=== PATIENT | female | born 1925 | race Caucasian/White ===

== ENCOUNTER 2016-10-03 11:18 | Observation (INO) ==
--- NOTE | 2016-10-03 11:56 | EKG Report ---
Stationary ECG Study [facility] ER Test Date: 10/03/2016 11:56:18 AM Pat Name: GARCÍA KEY Department: Room: Gender: F Tabber: : 1925 Requested by: Vick Dallas Order Number: [id number] Reading MD: CLAUDIO LEYVA Intervals [place] Rate: 59 P: 61 RI: 196 QRS: 104 QRSD: 87 T: 16 QT: 408 QTc: 408 Interpretive Statements SINUS RHYTHM MARKED RIGHT AXIS DEVIATION MODERATE ST DEPRESSION Electronically Signed On 10-03-16 17:12:01 CDT by CLAUDIO LEYVA [email or web address]
[2016-10-03 12:08] LABS: Basophils % 0.5 % (0.0-0.8); Eosinophils # 0.1 10*3/uL (0.0-0.87); Eosinophils % 1.5 % (0.00-10.9); Hemoglobin 12.1 GM/DL (12.0-16.0); Immature Granulocytes % 0.3 %; Immature Granulocytes Absolute 0.02 #; Lymphocytes # 2.1 10*3/uL (1.4-4.0); Lymphocytes % 34.2 % (21.3-54.2); Mean Corpuscular HGB Conc 33.6 GM/DL (32-36); Mean Corpuscular Hemoglobin 31 PG (27-34); Mean Corpuscular Volume 91.8 FL (87-102); Mean Platelet Volume 10.7 FL (9.6-12.0); Monocytes # 0.6 10*3/uL (0.11-0.8); Monocytes % 10.5 % (1.7-12.7); Neutrophils # 3.2 10*3/uL (1.4-7.4); Platelet Count 150 T/CUMM (130-400); Red Blood Count 3.92 MC/CUMM (3.8-5.5); Red Cell Distribution Width 13.2 % (9.3-17.3)
--- NOTE | 2016-10-03 12:28 | XRay Report ---
XR chest 1V portable Indication: Chest pain. Chest one view: Comparison 01/07/2012. Surgical clips throughout the low neck again shown. 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 There is persistent coarsening of the interstitium of the central lungs as well as lung bases. However, somewhat asymmetric increased density involving the medial right lung base is now present. Impression: Early right basilar pneumonia superimposed on chronic senile lung changes. PROCEDURE INTERPRETED AT [facility] DEPARTMENT OF RADIOLOGY Final Report Signed by: Ivan Pedraza M.D.
[2016-10-03 13:21] LABS: Albumin 3.3 G/DL (3.4-5.0); Bilirubin,Total 1.2 MG/DL (0.2-1.0); Calcium 8.5 MG/DL (8.5-10.1); Magnesium 2.5 MG/DL (1.8-2.4); Osmolality,Calculated 289.7 MOS/KG (273-304); Potassium 3.9 MMOL/L (3.5-5.1); Total Protein 6.3 G/DL (6.4-8.3)
[2016-10-03] MEDS ORDERED: LEVOFLOXACIN INJ 500 MG in PREMIX 1 EACH IV STA (14:25)
--- NOTE | 2016-10-03 14:31 | Emergency Department Note ---
IJennifer Emily, am scribing for, and in the presence of, Vick Leonard MD 11:55. Horacio Julian Phillip K, MD, personally performed the services described in this documentation, ascribed by Svetlana Rodriguez in my presence, and it is both accurate and complete [id number] . Arrival - Arrival Chief Complaint: Chest Pain ED Nursing Triage Note: PT WAS SEEN AT [facility] THIS AM FOR CHEST PAIN , PT WITH HX OF DEMENTIA, PT DENIES ANY COMPLAINTS AT PRESENT BUT ALSO DOES NOT REMEMBER EVEN GOING TO THE CLINIC THIS AM, PER SITTER PT IS AT HER NORMAL MENTAL STATUS Mode of Arrival: Stretcher Limitations: No Limitations Source: Patient, Family (family memeber and sitter) Time Seen by Provider: 10/03/16 11:38 - History of Present Illness HPI Narrative: Pt is a 89 y/o female who was transferred from [place] to ED for further evaluation of left sided chest pain. Pt notes having chest pain on left side this morning after coming back from bathroom, per sitter. Sitter states on Saturday pt c/o left shoulder pain and pt notes she is still having the pain. Pt denies N/V, cold, cough, SOB, or injury to left side. PMHx of Dementia, HTN, CVA, and thyroid issues. FMHx of sister having heart issues. Pt has not had a stress test previously. Pt has had shingles on her left side of trunk, twice before, per family member. Pt's PCP is at [facility]. Pt is allergic to aspirin. Onset (ago): hour(s) Consistency: constant Severity: mild, moderate Severity scale (1-10): 4 Quality: aching Allergies/Adverse Reactions: Allergies Allergy/AdvReac Type Severity Reaction Status Date / Time aspirin Allergy RASH Verified 10/03/16 11:34 chloramphenicol Allergy RASH Verified 10/03/16 13:02 iodine Allergy RASH Verified 10/03/16 13:02 Penicillins Allergy RASH Verified 10/03/16 12:47 Home Medications: Home Medications Medication Instructions Recorded Confirmed Type Amlodipine Besylate [Amlodipine 2.5 mg PO DAILY 10/03/16 10/03/16 History Besylate] Atorvastatin [Lipitor] 20 mg PO BEDTIME 10/03/16 10/03/16 History Clopidogrel Bisulfate [Clopidogrel] 75 mg PO DAILY 10/03/16 10/03/16 History Levothyroxine Tab [Synthroid Tab] 75 mcg PO DAILY@0700 10/03/16 10/03/16 History Memantine [Namenda] 10 mg PO BID 10/03/16 10/03/16 History Rivastigmine Cap [Exelon Cap] 1.5 mg PO TID 10/03/16 10/03/16 History Review of System - Review of System 12 point system: reviewed and no additional remarkable complaints except as stated - Review of System Constitutional: Absent: fever, weakness Respiratory: Absent: respiratory distress Cardiovascular: Present: chest pain (left side). Absent: syncope Gastrointestinal: Absent: abdominal pain, nausea, vomiting Musculoskeletal: Present: upper back pain (left shoulder). Absent: arm pain, back pain, leg pain, neck pain Skin: Absent: rash Neurological: Absent: headache Medical,Surgical,& Family Hx - Medical History Cardio: History of: Hypertension Neurology: History of: Cerebrovascular Accident Endocrine: History of: Thyroid Disorder - Social History Smoking Status: Never smoker Exam Vital Signs: Vital Signs Temperature 98.3 F 10/03/16 11:25 Pulse Rate 64 10/03/16 11:25 Respiratory Rate 16 10/03/16 11:25 O2 Sat by Pulse Oximetry 99 10/03/16 11:25 - General General appearance: alert, in no apparent distress - Head Head exam: Present: atraumatic, normocephalic - Eye Eye exam: Present: PERRL, EOMI - ENT ENT exam: Present: mucous membranes moist. Absent: mucous membranes dry - Neck Neck exam: Present: full ROM, trachea midline. Absent: tenderness - Chest Chest inspection: Present: symmetric chest wall rise. Absent: tenderness, rash - Respiratory Respiratory exam: Present: normal lung sounds bilaterally. Absent: respiratory distress - Cardiovascular Cardiovascular exam: Present: regular rate, normal rhythm, normal heart sounds - Abdominal Exam Abdominal exam: Present: soft, normal bowel sounds. Absent: distention, tenderness, guarding, rebound - Extremities Exam Extremities exam: Present: full ROM. Absent: tenderness, pedal edema - Back Exam Back exam: Present: full ROM. Absent: tenderness - Neurological Exam Neurological exam: Present: alert, oriented X3, CN II-XII intact. Absent: motor sensory deficit - Psychiatric Psychiatric exam: Present: normal affect, normal mood - Skin Skin exam: Present: warm, dry, intact, normal color. Absent: rash, diaphoresis , erythema Course Course Narrative: Patient discussed with the hospitalist. Results - Labs CBC & BMP: 10/03/16 12:01 10/03/16 12:01 Lab Results: I have reviewed the patients labs (Troponin is negative) Labs: Laboratory Tests 10/03/16 12:01 Sodium 145 Potassium 3.9 Chloride 111 H Carbon Dioxide 28 Glucose 121 H Magnesium 2.5 H Total Bilirubin 1.20 H Total Protein 6.3 L Albumin 3.3 L - EKG EKG results: interpreted by NIURKA, sinus rhythm (59) - Diagnostic Findings Procedure: Chest x-ray: report reviewed by me (Early right basilar PNA superimposed on chronic senile lung changes.) Disposition Clinical Impression: Chest pain, Possible angina, Possible right lower lobe infiltrate Case discussed with: patient, patient's family Disposition: Still a Patient Condition: Guarded Additional Instructions: Admit to the hospitalist
--- NOTE | 2016-10-03 14:52 | Hospitalist History & Physical ---
Assessment and Plan - Time spent with patient Time spent with patient: Greater than 30 minutes (1) Chest pain Status: Acute Assessment and plan: 10/03/16 Left sided chest pain: started a couple of days ago and worsened today: will Admit to on monitored bed to Hospitalist services for observation. Will order cardiac diet. Will order series Troponin. Will order a.m. labs, including A1c and lipid panel. Current Visit: Yes History of Present Illness Chief complaint: left sided chest pain History of present illness: Ms. Cabello is a very pleasant 89 year old white female presented to [facility] ED sent from [facility] for further evaluation of left-sided chest pain. Patient noted having left-sided chest pain this morning that has gradually gotten worse throughout the day. Sitter with patient states on Saturday the patient complained of left shoulder pain and the patient states she is still having some pain in her shoulder as well. Patient has a medical history of dementia (mild), hypertension, CVA, and thyroid issues. Patient has had shingles on her left side of trunk area in the past per report of family( daughter in room). Patient's primary care physician: Karen nurse practitioner at [facility]. Patient is allergic to aspirin. After discussing patient with Dr. Leonard in the ED and Dr. Benavides with hospital medicine it is in agreement patient will be admitted to telemetry for further evaluation and continue to monitor. Home medication to be reviewed and reconciliation to follow. Patient CODE STATUS discussed with daughter: Patient is a FULL CODE. Home Medications Medication Instructions Recorded Confirmed Type Amlodipine Besylate [Amlodipine 2.5 mg PO DAILY 10/03/16 10/03/16 History Besylate] Atorvastatin [Lipitor] 20 mg PO BEDTIME 10/03/16 10/03/16 History Clopidogrel Bisulfate [Clopidogrel] 75 mg PO DAILY 10/03/16 10/03/16 History Levothyroxine Tab [Synthroid Tab] 75 mcg PO DAILY@0700 10/03/16 10/03/16 History Memantine [Namenda] 10 mg PO BID 10/03/16 10/03/16 History Rivastigmine Cap [Exelon Cap] 1.5 mg PO TID 10/03/16 10/03/16 History Allergies Allergy/AdvReac Type Severity Reaction Status Date / Time aspirin Allergy RASH Verified 10/03/16 11:34 chloramphenicol Allergy RASH Verified 10/03/16 13:02 iodine Allergy RASH Verified 10/03/16 13:02 Penicillins Allergy RASH Verified 10/03/16 12:47 Medical,Surgical,& Family Hx - Medical History Cardio: History of: Hypertension Neurology: History of: Cerebrovascular Accident Endocrine: History of: Thyroid Disorder Other: History of: Skin Problems (Shingles on 2 different occasions ) - Family History Family History: Reports;: Family Heart Disease (sister) - Social History Smoking Status: Never smoker Frequency of Alcohol Use: None Type of Drug Use: None Marital Status: 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 Exam - Constitutional Vitals: Period Temp Pulse Resp BP Sys/Diggs Pulse Ox Last 24 Hr 98.3 F 64 16 99 General appearance: normal weight, no acute distress, under weight - Head Head exam: Present: normal inspection - Eye Eye exam: Present: EOMI Pupils: Present: BAYRON - ENT ENT exam: Present: other (moist mucus membranes) - Neck Neck exam: Present: normal inspection - Respiratory Respiratory exam: Present: clear to auscultation bilaterally - Cardiovascular Cardiovascular exam: Present: regular rate and rhythm - GI/Abdominal GI/Abdominal exam: Present: normal bowel sounds, soft. Absent: guarding, tenderness, rebound - Extremities Exam Extremities exam: Present: normal inspection, full ROM. Absent: edema - Neurological Exam Neurological exam: Present: alert, oriented X3, CN II-XII intact - Psychiatric Psychiatric exam: Present: normal affect, normal mood - Skin Skin exam: Present: normal color, warm, dry Results - Labs CBC & BMP: 10/03/16 12:01 10/03/16 12:01 Lab Results: I have reviewed the past 24 hour labs Labs: Troponin < 0.015 AST 16 ALT 17 Alkaline Phosphatase 76 - Diagnostic Findings Procedure: X-ray: report reviewed by me (Early right basilar pneumonia superimposed on chronic senile ling changes)
[2016-10-03] MEDS ORDERED: ACETAMINOPHEN 325 MG TABLET PO PRN (15:09)
[2016-10-03] MEDS ORDERED: ONDANSETRON 4 MG/2 ML VIAL IV PRN (15:09)
[2016-10-03] MEDS ORDERED: SODIUM CHLORIDE 0.9% 1,000 ML IV SCH (15:30)
[2016-10-03] MEDS ORDERED: LEVOFLOXACIN INJ 100 ML IV ONE (15:35)
[2016-10-03 15:46] LABS: Risk Ratio 2.84
[2016-10-03] MEDS ORDERED: diphenhydrAMINE 50 MG/1 ML VIAL ONE (15:51)
[2016-10-03] MEDS ORDERED: diphenhydrAMINE 50 MG/1 ML VIAL IV STA (16:32)
--- NOTE | 2016-10-03 17:59 | EKG Report ---
Stationary ECG Study [facility] Test Date: 10/03/2016 5:59:15 PM Pat Name: GARCÍA KEY Department: Room: 289 Gender: F Biology Adjunct Instructor: GIOVANNA : 1925 Requested by: Vick Dallas Order Number: [id number] Reading MD: LEONELA NOONAN Intervals [place] Rate: 61 P: 75 IA: 195 QRS: 59 QRSD: 96 T: 76 QT: 408 QTc: 412 Interpretive Statements SINUS RHYTHM WITH SINUS ARRHYTHMIA at 61 bpm IA WP NST Electronically Signed On 10-04-16 07:01:36 CDT by LEONELA NOONAN [id number]
[2016-10-03] MEDS ORDERED: ATORVASTATIN 20 MG TABLET PO SCH (21:00)
[2016-10-03] MEDS: MEMANTINE 10 MG TABLET PO SCH (21:20)
[2016-10-03] MEDS: RIVASTIGMINE 1.5 MG CAPSULE PO SCH (21:20)
[2016-10-04 04:47] LABS: Basophils % 0.5 % (0.0-0.8); Eosinophils # 0.1 10*3/uL (0.0-0.87); Eosinophils % 2.3 % (0.00-10.9); Hematocrit 35.5 VOL% (35.7-47.0); Immature Granulocytes % 0.5 %; Immature Granulocytes Absolute 0.03 #; Lymphocytes # 2.7 10*3/uL (1.4-4.0); Lymphocytes % 47.1 % (21.3-54.2); Mean Corpuscular HGB Conc 33.8 GM/DL (32-36); Mean Corpuscular Hemoglobin 31 PG (27-34); Mean Corpuscular Volume 90.8 FL (87-102); Mean Platelet Volume 11.4 FL (9.6-12.0); Monocytes # 0.7 10*3/uL (0.11-0.8); Monocytes % 12.7 % (1.7-12.7); Neutrophils # 2.1 10*3/uL (1.4-7.4); Neutrophils % 36.9 % (38.7-73.9); Platelet Count 143 T/CUMM (130-400); Red Blood Count 3.91 MC/CUMM (3.8-5.5); Red Cell Distribution Width 13.2 % (9.3-17.3); White Blood Count 5.7 T/CUMM (4-12)
[2016-10-04 05:16] LABS: Calcium 8.8 MG/DL (8.5-10.1); Magnesium 2.4 MG/DL (1.8-2.4); Osmolality,Calculated 287.7 MOS/KG (273-304); Potassium 3.9 MMOL/L (3.5-5.1); Troponin I Only < 0.015 NG/ML (0.00-0.045)
[2016-10-04 06:17] LABS: Eosinophils 2 % (0-10); Hypochromasia 1+; Lymphocytes 50 % (20-55); Segmented Neutrophils 43 % (50-85); Total Cells Counted 100
[2016-10-04 06:18] LABS: Microcytosis Slight; Ovalocytes Slight; Platelet Estimate Adequate
[2016-10-04] MEDS ORDERED: LEVOTHYROXINE 75 MCG TABLET PO SCH (07:00)
[2016-10-04] MEDS ORDERED: PANTOPRAZOLE 40 MG TABLET PO SCH (09:00)
[2016-10-04] MEDS ORDERED: CLOPIDOGREL 75 MG TABLET PO SCH (09:00)
[2016-10-04] MEDS ORDERED: amLODIPine 2.5 MG TABLET PO SCH (09:00)
[2016-10-04] MEDS: RIVASTIGMINE 1.5 MG CAPSULE PO SCH (09:32)
[2016-10-04] MEDS: MEMANTINE 10 MG TABLET PO SCH (09:32)
[2016-10-04] MEDS ORDERED: TIMOLOL 0.5% OPH SOLN 5 ML BOTTLE BOTH EYES SCH (10:30)
--- NOTE | 2016-10-04 10:32 | Discharge Summary ---
Hospital Course - Hospital Course Hospital Course: Ms. Cabello is an 89-year-old white female that was admitted from the emergency department with left-sided chest pain. She has had an on complicated and unremarkable hospital course. Her cardiac enzymes were negative and remained that way. She is pain-free and asymptomatic. She is ready for discharge home. Her home medications were reviewed and reconciled. - Time spent with patient Time with patient DS: Less than 30 minutes Diagnosis - Discharge Diagnosis (1) Chest pain Status: Resolved Discharge Plan - Discharge Data Disposition: Disch To Home/Self Care Condition at Discharge: Stable Discharge Diet: advance to your usual diet Activity: resume usual activities as tolerated Hygiene: no restrictions Weight Bearing at Discharge: full weight bearing Driving: no restrictions - Discharge Medications Continue Memantine [Namenda] 10 mg PO BID Amlodipine Besylate 2.5 mg PO DAILY Rivastigmine Cap [Exelon Cap] 1.5 mg PO TID Atorvastatin [Lipitor] 20 mg PO BEDTIME Levothyroxine Tab [Synthroid Tab] 75 mcg PO DAILY@0700 Timolol 0.5% Oph Soln [Timoptic 0.5%] 1 drop BOTH EYES BID Clopidogrel Bisulfate [Clopidogrel] 75 mg PO DAILY - Follow Up or Referral - Forms/Instructions Instructions: Angina (DC) Exam - Constitutional Vitals: Period Temp Pulse Resp BP Sys/Diggs Pulse Ox Last 24 Hr 97.2 F-99 F 60-69 16-18 126-190/55-89 94-100 Discharge Results Procedures and tests throughout hospitalization: Pending Orders 10/03/16 14:43 Blood Culture Stat Labs on day of discharge: Labs from last 24 hours 10/04/16 10/04/16 10/04/16 04:20 04:20 04:20 WBC RBC Hgb Hct MCV MCH MCHC RDW Plt Count MPV Neut % (Auto) Lymph % (Auto) [place] % (Auto) Eos % (Auto) Baso % (Auto) Neut # (Auto) Lymph # (Auto) [place] # (Auto) Eos # (Auto) Baso # (Auto) Total Counted Immature Gran % Nucleated RBC % Immature Gran # Segmented Neutrophils Lymphocytes Monocytes Eosinophils Nucleated RBCs # Platelet Estimate Hypochromasia Microcytosis Ovalocytes Sodium 145 Potassium 3.9 Chloride 110 H Carbon Dioxide 26 Anion Gap 12.9 BUN 14 Creatinine 0.80 GFR Calculation 62 BUN/Creatinine Ratio 17.00 Glucose 84 Hemoglobin A1c 6.1 Calculated Osmolality 287.7 Lactic Acid Calcium 8.8 Magnesium 2.4 Total Bilirubin AST ALT Alkaline Phosphatase Total Creatine Kinase 34 CK-MB (CK-2) < 1.0 Troponin I < 0.015 Total Protein Albumin Globulin Albumin/Globulin Ratio Triglycerides Cholesterol LDL Cholesterol VLDL Cholesterol HDL Cholesterol Heart Disease Risk Ratio TSH 3rd Generation 10/04/16 10/04/16 10/03/16 04:20 04:20 18:40 WBC 5.7 RBC 3.91 Hgb 12.0 Hct 35.5 L MCV 90.8 MCH 31 MCHC 33.8 RDW 13.2 Plt Count 143 MPV 11.4 Neut % (Auto) 36.9 L Lymph % (Auto) 47.1 [place] % (Auto) 12.7 Eos % (Auto) 2.3 Baso % (Auto) 0.5 Neut # (Auto) 2.1 Lymph # (Auto) 2.7 [place] # (Auto) 0.7 Eos # (Auto) 0.1 Baso # (Auto) 0.0 Total Counted 100 Immature Gran % 0.5 Nucleated RBC % 0.0 Immature Gran # 0.03 Segmented Neutrophils 43 L Lymphocytes 50 Monocytes 5 Eosinophils 2 Nucleated RBCs # 0.00 Platelet Estimate Adequate Hypochromasia 1+ Microcytosis Slight Ovalocytes Slight Sodium Potassium Chloride Carbon Dioxide Anion Gap BUN Creatinine GFR Calculation BUN/Creatinine Ratio Glucose Hemoglobin A1c Calculated Osmolality Lactic Acid Calcium Magnesium Total Bilirubin AST ALT Alkaline Phosphatase Total Creatine Kinase CK-MB (CK-2) Troponin I < 0.015 Total Protein Albumin Globulin Albumin/Globulin Ratio Triglycerides Cholesterol LDL Cholesterol VLDL Cholesterol HDL Cholesterol Heart Disease Risk Ratio TSH 3rd Generation 0.094 L 10/03/16 10/03/16 10/03/16 14:43 12:01 12:01 WBC RBC Hgb Hct MCV MCH MCHC RDW Plt Count MPV Neut % (Auto) Lymph % (Auto) [place] % (Auto) Eos % (Auto) Baso % (Auto) Neut # (Auto) Lymph # (Auto) [place] # (Auto) Eos # (Auto) Baso # (Auto) Total Counted Immature Gran % Nucleated RBC % Immature Gran # Segmented Neutrophils Lymphocytes Monocytes Eosinophils Nucleated RBCs # Platelet Estimate Hypochromasia Microcytosis Ovalocytes Sodium Potassium Chloride Carbon Dioxide Anion Gap BUN Creatinine GFR Calculation BUN/Creatinine Ratio Glucose Hemoglobin A1c Calculated Osmolality Lactic Acid 1.2 Calcium Magnesium Total Bilirubin AST ALT Alkaline Phosphatase Total Creatine Kinase CK-MB (CK-2) Troponin I < 0.015 Total Protein Albumin Globulin Albumin/Globulin Ratio Triglycerides 115 Cholesterol 125 LDL Cholesterol 62.0 VLDL Cholesterol 23.0 HDL Cholesterol 44 Heart Disease Risk Ratio 2.84 TSH 3rd Generation 10/03/16 10/03/16 12:01 12:01 WBC 6.0 RBC 3.92 Hgb 12.1 Hct 36.0 MCV 91.8 MCH 31 MCHC 33.6 RDW 13.2 Plt Count 150 MPV 10.7 Neut % (Auto) 53.0 Lymph % (Auto) 34.2 [place] % (Auto) 10.5 Eos % (Auto) 1.5 Baso % (Auto) 0.5 Neut # (Auto) 3.2 Lymph # (Auto) 2.1 [place] # (Auto) 0.6 Eos # (Auto) 0.1 Baso # (Auto) 0.0 Total Counted Immature Gran % 0.3 Nucleated RBC % 0.0 Immature Gran # 0.02 Segmented Neutrophils Lymphocytes Monocytes Eosinophils Nucleated RBCs # 0.00 Platelet Estimate Hypochromasia Microcytosis Ovalocytes Sodium 145 Potassium 3.9 Chloride 111 H Carbon Dioxide 28 Anion Gap 9.9 BUN 16 Creatinine 0.90 GFR Calculation 53 BUN/Creatinine Ratio 17.00 Glucose 121 H Hemoglobin A1c Calculated Osmolality 289.7 Lactic Acid Calcium 8.5 Magnesium 2.5 H Total Bilirubin 1.20 H AST 16 ALT 17 Alkaline Phosphatase 76 Total Creatine Kinase CK-MB (CK-2) Troponin I Total Protein 6.3 L Albumin 3.3 L Globulin 3.0 Albumin/Globulin Ratio 1.1 Triglycerides Cholesterol LDL Cholesterol VLDL Cholesterol HDL Cholesterol Heart Disease Risk Ratio TSH 3rd Generation DS: Provider Date of admission: 10/03/16 15:22 Primary care physician: . No PCP Attending physician on admission: Steven Benavides MD Discharging clinician: Steven Benavides MD Expected date of discharge: 10/04/16
[2016-10-04 11:52] VITALS: BP 168/74
== END 2016-10-04 13:06 | disposition home or self-care (01) ==
LOC: EDBD → EDUNIT# → N.ED 11:18 → N.EDINP 11:18 → N.TELEN 16:30
PROVIDERS: ADMIT Family Medicine; ATTEND Family Medicine